=== PATIENT | male | born 1965 | race Caucasian/White ===

== ENCOUNTER → 2021-10-29 10:28 | Outpatient (BNVA) | payer OTHER, SELFPAY | PROVIDERS: Visit Provider Nurse Practitioner Family | DX: R50.9 Fever, unspecified (principal); W57.XXXA Bitten or stung by nonvenomous insect and other nonvenomous arthropods, initial encounter; J40 Bronchitis, not specified as acute or chronic | CPT/HCPCS: 85025; 86618; 86666; 86757; 87400; 87426 ==